=== PATIENT | male | born 1960 | race Caucasian/White ===

== ENCOUNTER 2022-11-26 09:50 | Emergency (ER) | payer OTHER ==
[~2022-11-26] VITALS: Ht 175.2 cm; Wt 111.0 kg
[2022-11-26 10:20] VITALS: BP 124/70
== END 2022-11-26 10:20 | disposition home or self-care (01) ==
LOC: ER 09:56
DX: Z48.02 Encounter for removal of sutures (principal); Z28.310 Unvaccinated for COVID-19